=== PATIENT | female | born 1940 | race Caucasian/White ===

== ENCOUNTER 2018-07-27 12:51 | Inpatient (IN) | payer MEDICARE, OTHER ==
[2018-07-27] MEDS ORDERED: SODIUM CHLORIDE 0.9% 1,000 ML IV STA (12:57)
[2018-07-27] MEDS ORDERED: DIPH,PERTUS(ACELL)TETVAC-LF 0.5 ML VIAL IM ONE (12:57)
[2018-07-27] MEDS ORDERED: MORPHINE SULFATE 4 MG/ML SYRINGE IV STA (12:59)
[2018-07-27] MEDS ORDERED: ETOMIDATE 2 MG/ML 10 ML VIAL IVP STA (13:01)
--- NOTE | 2018-07-27 13:14 | ED ---
General Adult HPI - General Chief complaint: Fall Stated complaint: open fracture lt ankle Time Seen by Provider: 07/27/18 12:56 Source: patient, EMS, RN notes reviewed Mode of arrival: EMS Limitations: no limitations - History of Present Illness Initial comments: Patient is a pleasant 78-year-old female presenting to the emergency department after a slip and fall. Patient was trying to hold her horse when she slipped on wet hay. Patient sustained left ankle injury. Bone is visualized. Patient comes in by EMS. Patient states she did strike her head. takes aspirin daily, otherwise no blood thinners. No loss of consciousness. No confusion. No speech from. No weakness. Patient denies any other extremity injury. No chest pain or dyspnea. No neck or back pain. No abdominal pain. No history of previous significant ankle injury. - Related Data Home Medications Medication Instructions Recorded Confirmed Ascorbic Acid [Vitamin C] 1,000 mg PO DAILY 07/27/18 07/27/18 Aspirin [[place] Aspirin EC] 81 mg PO DAILY 07/27/18 07/27/18 Calcium Carbonate [Calcium] 1,200 mg PO DAILY 07/27/18 07/27/18 Cholecalciferol (Vitamin D3) 4,000 unit PO DAILY 07/27/18 07/27/18 [Vitamin D3] Cranberry Fruit Extract [Cranberry] 4,200 mg PO DAILY 07/27/18 07/27/18 Cyanocobalamin (Vitamin B-12) 5,000 mcg PO DAILY 07/27/18 07/27/18 [Vitamin B-12] Dextroamphetamine/Amphetamine 30 mg PO DAILY 07/27/18 07/27/18 [Adderall] Echinacea 400 mg PO DAILY 07/27/18 07/27/18 Folic Acid 0.4 mg PO DAILY 07/27/18 07/27/18 Galantamine HBr [Razadyne ER] 24 mg PO DAILY 07/27/18 07/27/18 Green Tea [place] Extract [Green Tea 150 mg PO DAILY 07/27/18 07/27/18 Extract] Krill Oil 500 mg PO DAILY 07/27/18 07/27/18 Levothyroxine Sodium [Synthroid] 88 mcg PO DAILY 07/27/18 07/27/18 Magnesium Oxide [Mag-Ox] 250 mg PO DAILY 07/27/18 07/27/18 Memantine HCl [Namenda Xr] 28 mg PO DAILY 07/27/18 07/27/18 Multivitamins, Thera [Multivitamin 1 tab PO DAILY 07/27/18 07/27/18 (formulary)] Niacin [Slo-Niacin] 500 mg PO DAILY 07/27/18 07/27/18 [place]-3 Fatty Acids [[place]-3] 1,000 mg PO DAILY 07/27/18 07/27/18 Omeprazole [PriLOSEC] 20 mg PO QAM 07/27/18 07/27/18 Simvastatin [Zocor] 20 mg PO HS 07/27/18 07/27/18 Ubidecarenone [Co Q-10] 400 mg PO DAILY 07/27/18 07/27/18 Venlafaxine HCl ER [Effexor XR] 150 mg PO DAILY 07/27/18 07/27/18 Vitamin E 100 unit PO DAILY 07/27/18 07/27/18 Allergies Allergy/AdvReac Type Severity Reaction Status Date / Time Sulfa (Sulfonamide Allergy Unknown Verified 07/27/18 14:07 Antibiotics) Childhood Review of Systems ROS Statement: Those systems with pertinent positive or pertinent negative responses have been documented in the HPI. ROS Other: All systems not noted in ROS Statement are negative. Constitutional: Denies: fever Eyes: Denies: eye pain ENT: Denies: ear pain Respiratory: Denies: cough Cardiovascular: Denies: chest pain Endocrine: Denies: fatigue Gastrointestinal: Denies: abdominal pain Genitourinary: Denies: dysuria Musculoskeletal: Reports: as per HPI, arthralgia Skin: Denies: rash Neurological: Reports: as per HPI. Denies: weakness, confusion Past Medical History Past Medical History: Hyperlipidemia Additional Past Medical History / Comment(s): alzheimer's disease, narcolepsy, GERD, malignant melanoma, breast tumor History of Any Multi-Drug Resistant Organisms: None Reported Past Surgical History: Hernia Repair Additional Past Surgical History / Comment(s): D&C cyst removal, malignant b reast tumor Past Psychological History: Depression Smoking Status: Current every day smoker Past Alcohol Use History: None Reported Past Drug Use History: None Reported General Exam Limitations: no limitations General appearance: alert Head exam: Present: other (Left parietal scalp laceration) Eye exam: Present: normal appearance, PERRL, EOMI. Absent: nystagmus ENT exam: Present: normal oropharynx Neck exam: Present: normal inspection, other (C-collar is present). Absent: tenderness Respiratory exam: Present: normal lung sounds bilaterally. Absent: chest wall tenderness Cardiovascular Exam: Present: regular rate, normal rhythm Expanded Peripheral pulses: 2+: Dorsalis Pedis (L) GI/Abdominal exam: Present: soft. Absent: tenderness Left Ankle exam: Present: laceration, deformity (open Left ankle fracture dislocation with large portion of tibia exposed. Cap refill less than 2 seconds. Patient is able to move toes without weakness. Dorsalis pedis pulse intact) Back exam: Present: normal inspection Neurological exam: Present: alert, oriented X3, CN II-XII intact. Absent: motor sensory deficit Psychiatric exam: Present: normal affect, normal mood Skin exam: Present: other (open Left ankle fracture) Course Vital Signs 07/27/18 07/27/18 07/27/18 12:57 13:30 13:31 Temperature 98.8 F Pulse Rate 79 71 84 Respiratory 18 18 18 Rate Blood Pressure 160/99 141/86 123/87 O2 Sat by Pulse 95 98 98 Oximetry 07/27/18 07/27/18 07/27/18 13:35 13:40 13:45 Temperature Pulse Rate 64 70 65 Respiratory 0 L 14 18 Rate Blood Pressure 189/99 158/87 166/86 O2 Sat by Pulse 95 95 95 Oximetry 07/27/18 13:50 Temperature Pulse Rate 65 Respiratory 18 Rate Blood Pressure 148/67 O2 Sat by Pulse 96 Oximetry - Reevaluation(s) Reevaluation #1: 07/27/18 13:10 Case was discussed with orthopedics, Dr. Whitney who does recommend reduction and will come and for probable or today. 07/27/18 14:29 Ankle was irrigated with 2 L of normal saline and Betadine prior to reduction. There was no gross contamination. EKG Findings - EKG Comments: EKG Findings:: Normal sinus rhythm 73. KS 160. QRS 110. QT 396. QTc 436. Left axis. Incomplete right bundle-branch block. Left anterior fascicular block. Nonspecific T waves. Procedures - Laceration Laceration #1 Consent Obtained: verbal consent Indication: laceration Site: scalp Size (cm): 3 Description: linear Depth: simple, single layer Pre-repair: wound explored, irrigated extensively Type of Sutures: other ([place]) Number of Sutures: 6 Patient Tolerated Procedure: well, no complications - Orthopedic Fracture Reduction Fracture #1 Consent Obtained: verbal consent, written consent, emergent situation Side: left Fracture Reduction Location: tibia, fibula Analgesia: procedural sedation Technique: direct manipulation, traction/counter-traction Post Reduction X-rays Demonstrate: acceptable reduction Post-Reduction Neuro Exam: intact Post-Reduction Vascular Exam: intact Splint Applied: Yes Patient Tolerated Procedure: well, no complications - Orthopedic Splinting/Casting Injury #1 Side: left Lower Extremity Injury Location: short leg, ankle Lower Extremity Immobilizer: stirrup splint - Procedural Sedation Procedural Sedation Start Time: 13:30 Procedural Sedation Stop Time: 13:55 Indications: fracture/dislocation reduction Preparation: manager maintenance applied, pulse oximeter, capnometry used, suppl emental O2 applied IV Etomidate Dose (mgs): 12 Complications: hypoventilation Interventions: assist by BVM Patient Tolerated Procedure: well Medical Decision Making - Lab Data Result diagrams: 07/27/18 12:54 07/27/18 13:30 Lab Results 07/27/18 07/27/18 07/27/18 Range/Units 12:54 12:54 12:54 WBC 5.9 (3.8-10.6) k/uL RBC 4.84 (3.80-5.40) m/uL Hgb 14.8 (11.4-16.0) gm/dL Hct 45.0 (34.0-46.0) % MCV 92.9 (80.0-100.0) fL MCH 30.5 (25.0-35.0) pg MCHC 32.8 (31.0-37.0) g/dL RDW 14.3 (11.5-15.5) % Plt Count 189 (150-450) k/uL Neutrophils % 55 % Lymphocytes % 35 % Monocytes % 5 % Eosinophils % 3 % Basophils % 1 % Neutrophils # 3.2 (1.3-7.7) k/uL Lymphocytes # 2.0 (1.0-4.8) k/uL Monocytes # 0.3 (0-1.0) k/uL Eosinophils # 0.2 (0-0.7) k/uL Basophils # 0.0 (0-0.2) k/uL PT 10.0 (9.0-12.0) sec INR 0.9 (<1.2) APTT 22.6 (22.0-30.0) sec Sodium (137-145) mmol/L Potassium (3.5-5.1) mmol/L Chloride (98-107) mmol/L Carbon Dioxide (22-30) mmol/L Anion Gap mmol/L BUN (7-17) mg/dL Creatinine (0.52-1.04) mg/dL Est GFR (CKD-EPI)AfAm (>60 ml/min/1.73 sqM) Est GFR (CKD-EPI)NonAf (>60 ml/min/1.73 sqM) Glucose (74-99) mg/dL Calcium (8.4-10.2) mg/dL Total Bilirubin (0.2-1.3) mg/dL AST (14-36) U/L ALT (9-52) U/L Alkaline Phosphatase (38-126) U/L Total Protein (6.3-8.2) g/dL Albumin (3.5-5.0) g/dL Blood Type Blood Type Confirm A Positive Blood Type Recheck Antibody Screen Spec Expiration Date 07/27/18 07/27/18 Range/Units 13:15 13:30 WBC (3.8-10.6) k/uL RBC (3.80-5.40) m/uL Hgb (11.4-16.0) gm/dL Hct (34.0-46.0) % MCV (80.0-100.0) fL MCH (25.0-35.0) pg MCHC (31.0-37.0) g/dL RDW (11.5-15.5) % Plt Count (150-450) k/uL Neutrophils % % Lymphocytes % % Monocytes % % Eosinophils % % Basophils % % Neutrophils # (1.3-7.7) k/uL Lymphocytes # (1.0-4.8) k/uL Monocytes # (0-1.0) k/uL Eosinophils # (0-0.7) k/uL Basophils # (0-0.2) k/uL PT (9.0-12.0) sec INR (<1.2) APTT (22.0-30.0) sec Sodium 142 (137-145) mmol/L Potassium 3.9 (3.5-5.1) mmol/L Chloride 107 (98-107) mmol/L Carbon Dioxide 29 (22-30) mmol/L Anion Gap 6 mmol/L BUN 15 (7-17) mg/dL Creatinine 0.70 (0.52-1.04) mg/dL Est GFR (CKD-EPI)AfAm >90 (>60 ml/min/1.73 sqM) Est GFR (CKD-EPI)NonAf 84 (>60 ml/min/1.73 sqM) Glucose 126 H (74-99) mg/dL Calcium 8.8 (8.4-10.2) mg/dL Total Bilirubin 0.4 (0.2-1.3) mg/dL AST 22 (14-36) U/L ALT 16 (9-52) U/L Alkaline Phosphatase 62 (38-126) U/L Total Protein 6.3 (6.3-8.2) g/dL Albumin 3.8 (3.5-5.0) g/dL Blood Type A Positive Blood Type Confirm Blood Type Recheck CABO Indicated Antibody Screen NEGATIVE Spec Expiration Date 07/30/2018 - 6578 - Radiology Data Radiology results: report reviewed (Computed tomography scan of the brain and cervical spine reveal no acute abnormality.), image reviewed (1 view chest x-ray shows no acute process pelvic x-ray shows no acute process. Left ankle x-ray s hows comminuted tibia fibular fracture with complete dislocation of the talus lateral and anterior to the tibia. Postreduction x-ray shows significantly improved reduction of trimalleolar fracture.) Critical Care Time Critical Care Time: Yes Total Critical Care Time: 37 Disposition Clinical Impression: Fall, Fracture dislocation of left ankle joint, Open left ankle fracture, Laceration of scalp Disposition: ADMITTED IP TO THIS HOSP Is patient prescribed a controlled substance at d/c from ED?: No Referrals: Vel Montes De Oca MD [Primary Care Provider] - 1-2 days Decision Time: 14:32
[2018-07-27] MEDS ORDERED: ceFAZolin IN SWFI 2 GM/20 ML SYRINGE IVP ONE (13:15)
[2018-07-27 13:18] LABS: Basophils % (A) 1 %; Eosinophils # (A) 0.2 k/uL (0-0.7); Eosinophils % (A) 3 %; HGB 14.8 gm/dL (11.4-16.0); Lymphocytes % (A) 35 %; MCH 30.5 pg (25.0-35.0); MCHC 32.8 g/dL (31.0-37.0); MCV 92.9 fL (80.0-100.0); Mean Platelet Volume 7.5; Monocytes # (A) 0.3 k/uL (0-1.0); Monocytes % (A) 5 %; Neutrophils # (A) 3.2 k/uL (1.3-7.7); Neutrophils % (A) 55 %; Platelet Count 189 k/uL (150-450); RBC 4.84 m/uL (3.80-5.40); RDW 14.3 % (11.5-15.5); WBC 5.9 k/uL (3.8-10.6)
[2018-07-27] MEDS ORDERED: MORPHINE SULFATE 4 MG/ML SYRINGE IVP STA (13:25)
[2018-07-27 13:45] LABS: INR 0.9 (<1.2); Partial Thromboplastin Time 22.6 sec (22.0-30.0)
[2018-07-27 13:47] LABS: Potassium 3.9 mmol/L (3.5-5.1); Sodium 142 mmol/L (137-145)
[2018-07-27 13:48] LABS: ALT 16 U/L (9-52); AST 22 U/L (14-36); Albumin 3.8 g/dL (3.5-5.0); Alkaline Phosphatase 62 U/L (38-126); Anion Gap 6 mmol/L; Blood Urea Nitrogen 15 mg/dL (7-17); Calcium 8.8 mg/dL (8.4-10.2); Carbon Dioxide 29 mmol/L (22-30); Chloride 107 mmol/L (98-107); Glucose 126 mg/dL (74-99); Total Bilirubin 0.4 mg/dL (0.2-1.3); Total Protein 6.3 g/dL (6.3-8.2)
[2018-07-27] MEDS ORDERED: ONDANSETRON 4 MG/2 ML VIAL IVP STA (13:51)
--- NOTE | 2018-07-27 14:14 | XR ---
EXAMINATION TYPE: XR pelvis AP view DATE OF EXAM: 07/27/2018 COMPARISON: None HISTORY: Trauma fall TECHNIQUE: AP pelvis FINDINGS: Femoral heads articulate with the acetabulum. Symphysis pubis and sacroiliac joints are nor mal. No acute fractures are evident. Normal bowel gas is present. IMPRESSION: 1. Normal pelvis
--- NOTE | 2018-07-27 14:14 | XR ---
EXAMINATION TYPE: XR chest 1V portable DATE OF EXAM: 07/27/2018 COMPARISON: None INDICATION: Trauma fall TECHNIQUE: Single frontal view of the chest is obtained. FINDINGS: The heart size is normal. The pulmonary vasculature is normal. The lungs are clear. No pneumothorax is evident. No displaced rib fractures are identified. IMPRESSION: 1. No acute pulmonary process.
--- NOTE | 2018-07-27 14:17 | XR ---
EXAMINATION TYPE: XR ankle limited LT DATE OF EXAM: 07/27/2018 COMPARISON: None HISTORY: Fall, pain open left ankle fracture TECHNIQUE: 2 view left ankle FINDINGS: There is dislocation of the talus in relation to the tibia anterior and lateral. There is a comminuted fibular fracture. Medial tibial fracture appears to be present as well. Posterior tibial fracture is not clearly identified. Plantar calcaneal heel spur is noted. There is some flattening of Boehler's angle. Consider a calcaneal fracture as well. This could be pro jectional given some rotation of the foot during the exam. Subsequent studies appear more normal. IMPRESSION: 1. Comminuted fibular fracture with complete dislocation of the talus lateral and anterior to the ti tiffany.
--- NOTE | 2018-07-27 14:18 | XR ---
EXAMINATION TYPE: XR ankle limited LT DATE OF EXAM: 07/27/2018 COMPARISON: Earlier exam HISTORY: Open fracture distal left ankle TECHNIQUE: 2 view left ankle through a fiberglass cast FINDINGS: Comminuted fracture the distal fibula is evident. A transverse fracture of the distal media l malleolus is evident. The talus has normal orientation in relation to the tibia. Posterior tibial f racture however is identified on this examination. Findings are compatible with reduction of previous dislocation of the talus and a trimalleolar fracture of the ankle. Bohler's angle appears normal on this examination. Plantar calcaneal heel spur is present. No additio nal fractures are evident. IMPRESSION: 1. Trimalleolar fracture. 2. Reduction of talar dislocation.
--- NOTE | 2018-07-27 14:32 | CT ---
EXAMINATION TYPE: CT brain nik ramos DATE OF EXAM: 07/27/2018 COMPARISON: None HISTORY: Fall today CT DLP: 1329.2 mGycm, Automated exposure control for dose reduction was used. CONTRAST: Patient injected with 0 mL of Isovue 300. CT of the brain is performed utilizing 3 mm thick sections through the posterior fossa and 3 mm thick sections through the remaining calvarium. Study is performed within 24 hours of arrival to the hospital. No abnormal hyperdensity is present to suggest an acute intracranial hemorrhage. No mass lesion is evident. No acute infarcts are evident. Minimal periventricular white matter changes may be present. Ventricles and sulci are appropriate for the patient age. Paranasal sinuses and mastoid air cells within the [id number] are clear. IMPRESSIONS: 1. No acute intracranial process. CT cervical spine. COMPARISON: None CT of the cervical spine is performed in the axial plane at 2 mm thick sections. Reconstructed image s in the coronal, and sagittal plane are reviewed on the computer. No acute fractures are evident. There is slight kyphosis C3-4. There is loss of disc height throughout the cervical spine. This is most notable C3-4. Vertebral body heights are preserved. No spinal canal stenosis is evident. Uncovertebral joint hypertrophy is present. At the C4-5 and C5-6 levels this is contributing to moder ate foraminal stenosis. Milder foraminal narrowing at C6-7 is present from uncovertebral joint hypert rophy. IMPRESSIONS: 1. Degenerative disc change and uncovertebral joint hypertrophy discussed above. 2. No acute posttraumatic changes.
[2018-07-27] MEDS ORDERED: NALOXONE 0.4 MG/ML 1 ML VIAL IV PRN (14:33)
[2018-07-27] MEDS ORDERED: HYDROmorphone 0.5 MG/0.5 ML SYRINGE IVP PRN (14:33)
[2018-07-27] MEDS ORDERED: DEXTROSE 5% IVPB SCH ×2 (16:00)
[2018-07-27] MEDS ORDERED: WATER IVPB SCH ×2 (16:00)
[2018-07-27] MEDS ORDERED: PENICILLIN POTASSIUM IVPB SCH ×2 (16:00)
--- NOTE | 2018-07-27 16:09 | P.HPOR ---
History of Present Illness H&P Date: 07/27/18 Chief Complaint: left ankle fracture Mrs. Dooley is a very pleasant 78-year-old female who sustained an injury to her left ankle earlier today. She was in her barn and her horse turned and knocked her over, causing her to fall and resulting in an open ankle fracture. She is brought to [facility] emergency department where the ankle was reduced and splinted. She localizes the pain to the left ankle and denies any other significant injuries or areas of pain associated with this fall. She denies previous history of injury to the ankle and normally ambulates without the use of assistive devices. She denies past medical history of diabetes, cardiovascular or kidney disease. She is a current half pack per day smoker for nearly 60 years. Past Medical History Past Medical History: Hyperlipidemia Additional Past Medical History / Comment(s): alzheimer's disease, narcolepsy, GERD, malignant melanoma, breast tumor History of Any Multi-Drug Resistant Organisms: None Reported Past Surgical History: Hernia Repair Additional Past Surgical History / Comment(s): D&C cyst removal, malignant breast tumor Past Psychological History: Depression Smoking Status: Current every day smoker Past Alcohol Use History: None Reported Past Drug Use History: None Reported Medications and Allergies Home Medications Medication Instructions Recorded Confirmed Type Ascorbic Acid [Vitamin C] 1,000 mg PO DAILY 07/27/18 07/27/18 History Aspirin [[place] Aspirin EC] 81 mg PO DAILY 07/27/18 07/27/18 History Calcium Carbonate [Calcium] 1,200 mg PO DAILY 07/27/18 07/27/18 History Cholecalciferol (Vitamin D3) 4,000 unit PO DAILY 07/27/18 07/27/18 History [Vitamin D3] Cranberry Fruit Extract [Cranberry] 4,200 mg PO DAILY 07/27/18 07/27/18 History Cyanocobalamin (Vitamin B-12) 5,000 mcg PO DAILY 07/27/18 07/27/18 History [Vitamin B-12] Dextroamphetamine/Amphetamine 30 mg PO DAILY 07/27/18 07/27/18 History [Adderall] Echinacea 400 mg PO DAILY 07/27/18 07/27/18 History Folic Acid 0.4 mg PO DAILY 07/27/18 07/27/18 History Galantamine HBr [Razadyne ER] 24 mg PO DAILY 07/27/18 07/27/18 History Green Tea [place] Extract [Green Tea 150 mg PO DAILY 07/27/18 07/27/18 History Extract] Krill Oil 500 mg PO DAILY 07/27/18 07/27/18 History Levothyroxine Sodium [Synthroid] 88 mcg PO DAILY 07/27/18 07/27/18 History Magnesium Oxide [Mag-Ox] 250 mg PO DAILY 07/27/18 07/27/18 History Memantine HCl [Namenda Xr] 28 mg PO DAILY 07/27/18 07/27/18 History Multivitamins, Thera [Multivitamin 1 tab PO DAILY 07/27/18 07/27/18 History (formulary)] Niacin [Slo-Niacin] 500 mg PO DAILY 07/27/18 07/27/18 History [place]-3 Fatty Acids [[place]-3] 1,000 mg PO DAILY 07/27/18 07/27/18 History Omeprazole [PriLOSEC] 20 mg PO QAM 07/27/18 07/27/18 History Simvastatin [Zocor] 20 mg PO HS 07/27/18 07/27/18 History Ubidecarenone [Co Q-10] 400 mg PO DAILY 07/27/18 07/27/18 History Venlafaxine HCl ER [Effexor XR] 150 mg PO DAILY 07/27/18 07/27/18 History Vitamin E 100 unit PO DAILY 07/27/18 07/27/18 History Allergies Allergy/AdvReac Type Severity Reaction Status Date / Time Sulfa (Sulfonamide Allergy Unknown Verified 07/27/18 14:07 Antibiotics) Childhood Physical Examination HEENT: Normocephalic Cardiovascular: Regular rate and rhythm. Pulmonary: No audible wheeze or conversational dyspnea Abdomen: Soft & nontender Musculoskeletal - Left lower extremity: There is no gross visible deformity or malalignment. Splint is in place at the left ankle. This was windowed to reveal an open wound on the medial aspect of the ankle measuring approximately 8 cm. There is no active bleeding or gross visible contamination. Light touch sensation is subjectively intact distally and she can actively wiggle her toes. Dorsalis pedis pulse is 2+ but the foot is mildly cool and white. Note: the RAYMUNDO was quite tight and circulation improved upon loosening. Secondary survey reveals no gross long bone abnormalities, deformities or tenderness to palpation in the right lower extremity or bilateral upper extremities. Results X-rays-left ankle: Demonstrated completely displaced ankle fracture-dislocation. The talus is displaced laterally 100%. Postreduction x-rays demonstrated comminuted, trimalleolar ankle fracture with a segmental Day C distal fibula fracture, a comminuted medial malleolus fracture which is minimally displaced and a large posterior malleolus fragment. The talus is again seated within the mortise but there is mild rotation posterior subluxation. No other fractures are appreciated. - Labs Labs: Abnormal Lab Results - Last 24 Hours (Table) 07/27/18 Range/Units 13:30 Glucose 126 H (74-99) mg/dL H & H 07/27/18 Range/Units 12:54 Hgb 14.8 (11.4-16.0) gm/dL Hct 45.0 (34.0-46.0) % Coagulation 07/27/18 Range/Units 12:54 INR 0.9 (<1.2) Result Diagrams: 07/27/18 12:54 07/27/18 13:30 Assessment and Plan Assessment: 1. Grade 2 open comminuted left trimalleolar ankle fracture-dislocation 2. Nicotine addiction/tobacco abuse Plan: I discussed the diagnosis and radiographic findings with the patient and her . We discussed treatment options. With this open, unstable fracture, I recommended operative debridement and initial stabilization with splinting versus application of an external fixator. We discussed the initial surgical plan. Risks and benefits were reviewed including (but not limited to) the risks of infection, bleeding, blood clots and possible need for additional surgery. Questions were invited and answered. The patient expressed understanding and wishes to proceed with surgery. The patient has been administered IV antibiotics. She will be kept NPO and we will proceed with urgent irrigation and debridement of the open left ankle fracture dislocation. Eddi Plummer D.O. Orthopedic surgeon [facility]
[2018-07-27] MEDS: SODIUM CHLORIDE 0.9% 1,000 ML IV SCH ×2 (16:10→22:58)
[2018-07-27] MEDS ORDERED: PROPOFOL 10 MG/ML 20 ML VIAL IV ONE ×2 (16:39)
[2018-07-27] MEDS ORDERED: LIDOCAINE 1% INJ 10MG/ML (20 ML MDV) ONE (16:39)
[2018-07-27] MEDS ORDERED: fentaNYL (PF) 50 MCG/ML 2 ML AMP ONE (16:39)
[2018-07-27] MEDS ORDERED: ePHEDrine SULFATE/0.9% NACL/PF 50 MG/5 ML SYRINGE IV ONE (16:39)
[2018-07-27] MEDS ORDERED: NEOSTIGMINE 1 MG/ML 10 ML VIAL ONE (16:39)
[2018-07-27] MEDS ORDERED: SUCCINYLCHOLINE CHLORIDE 100 MG/5 ML SYR IV ONE (16:39)
[2018-07-27] MEDS ORDERED: ROCURONIUM BROMIDE 10 MG/ML 10 ML VIAL IV ONE (16:39)
[2018-07-27] MEDS ORDERED: GLYCOPYRROLATE 0.2 MG/ML 2 ML VIAL ONE (16:39)
[2018-07-27] MEDS ORDERED: MIDAZOLAM 2 MG/2 ML VIAL ONE ×2 (16:39)
[2018-07-27] MEDS ORDERED: LACTATED RINGERS 1,000 ML IV ONE ×2 (16:44→19:50)
[2018-07-27] MEDS: HYDROmorphone 1 MG/ML 1 ML SYRINGE IVP ONE ×2 (19:35→19:40)
--- NOTE | 2018-07-27 19:55 | FL ---
Fluoroscopy INDICATION: Pain FINDINGS: Fluoroscopy time: 1 minute 38 seconds. Images obtained: 4. IMPRESSIONS: 1. Documentation of fluoroscopy.
[2018-07-27] MEDS ORDERED: ONDANSETRON 4 MG/2 ML VIAL IVP ONE (20:09)
[2018-07-27] MEDS: HYDROmorphone 1 MG/ML 1 ML SYRINGE IVP PRN (21:40)
[2018-07-27] MEDS: WATER IVPB SCH ×2 (22:55)
[2018-07-27] MEDS: DEXTROSE 5% IVPB SCH ×2 (22:55)
[2018-07-27] MEDS: PENICILLIN POTASSIUM IVPB SCH ×2 (22:55)
[2018-07-28] LABS: Basophils % (A) 0 %; Eosinophils # (A) 0.2 k/uL (0-0.7); Eosinophils % (A) 2 %; HCT 39.5 % (34.0-46.0); HGB 12.8 gm/dL (11.4-16.0); Lymphocytes # (A) 1.9 k/uL (1.0-4.8); Lymphocytes % (A) 19 %; MCHC 32.4 g/dL (31.0-37.0); MCV 95.6 fL (80.0-100.0); Mean Platelet Volume 7.4; Monocytes # (A) 0.4 k/uL (0-1.0); Monocytes % (A) 4 %; Neutrophils # (A) 7.5 k/uL (1.3-7.7); Neutrophils % (A) 75 %; Platelet Count 145 k/uL (150-450); RBC 4.13 m/uL (3.80-5.40); RDW 13.7 % (11.5-15.5)
[2018-07-28] MEDS: HYDROmorphone 1 MG/ML 1 ML SYRINGE IVP PRN ×4 (00:24→16:51)
[2018-07-28] MEDS: ONDANSETRON 4 MG/2 ML VIAL IVP PRN (00:27)
[2018-07-28] MEDS: ceFAZolin IN SWFI 2 GM/20 ML SYRINGE IVP SCH ×4 (00:32→23:55)
[2018-07-28] MEDS: WATER IVPB SCH ×12 (00:32→20:46)
[2018-07-28] MEDS: DEXTROSE 5% IVPB SCH ×12 (00:32→20:46)
[2018-07-28] MEDS: PENICILLIN POTASSIUM IVPB SCH ×12 (00:32→20:46)
[2018-07-28] MEDS: LEVOTHYROXINE 88 MCG TAB PO SCH (04:20)
[2018-07-28] MEDS: SODIUM CHLORIDE 0.9% 1,000 ML IV SCH ×3 (05:56→20:49)
[2018-07-28] MEDS: HYDROcodone/APAP 5-325MG 1 EACH TAB PO PRN ×3 (07:12→20:54)
[2018-07-28] MEDS ORDERED: NON-FORMULARY DRUG (Magnesium Oxide 250 MG) PO SCH (09:00)
[2018-07-28] MEDS ORDERED: NIACIN 500 MG PO SCH (09:00)
[2018-07-28] MEDS ORDERED: NON-FORMULARY DRUG (Folic Acid [Folic Acid] 0.4 MG) PO SCH (09:00)
[2018-07-28] MEDS ORDERED: NON-FORMULARY DRUG (Omeprazole 20 MG) PO SCH (09:00)
[2018-07-28] MEDS ORDERED: NON-FORMULARY DRUG (Vitamin E [Vitamin E] 100 UNIT) PO SCH (09:00)
[2018-07-28] MEDS ORDERED: NON-FORMULARY DRUG (Calcium Carbonate [Calcium] 1,200 MG) PO SCH (09:00)
[2018-07-28] MEDS: MEMANTINE 10 MG TAB PO SCH ×2 (09:01→20:46)
[2018-07-28] MEDS: DONEPEZIL 10 MG TAB PO SCH (09:01)
[2018-07-28] MEDS: ENOXAPARIN 40 MG/0.4 ML SYRINGE SQ SCH (09:01)
[2018-07-28] MEDS: CHOLECALCIFEROL 1,000 UNIT TAB PO SCH (09:02)
[2018-07-28] MEDS: CYANOCOBALAMIN 500 MCG TAB PO SCH (09:02)
[2018-07-28] MEDS: Dextroamphetamine/Amphetamine [Adderall] 30 MG PO SCH (09:06)
[2018-07-28] MEDS: MULTIVITAMINS, THERA 1 EACH TAB PO SCH (10:41)
[2018-07-28] MEDS: VENLAFAXINE HCL ER 150 MG CAP PO SCH (10:41)
[2018-07-28] MEDS: PANTOPRAZOLE 40 MG/10 ML VIAL IV SCH (10:43)
--- NOTE | 2018-07-28 11:16 | P.PN ---
Subjective Progress Note Date: 07/28/18 The patient states the pain is well-controlled. This is localized to the distal left lower extremity. She denies new areas of pain or identified injuries. No fevers, chills, nausea or vomiting. She denies any new issues or concerns. Objective - Vital Signs Vital signs: Vital Signs Temp 99.1 F 07/28/18 06:58 Pulse 70 07/28/18 06:58 Resp 16 07/28/18 06:58 BP 110/69 07/28/18 06:58 Pulse Ox 94 L 07/28/18 10:46 Intake & Output 07/27/18 07/28/18 07/28/18 18:59 06:59 18:59 Intake Total 600 1750 Output Total 50 Balance 600 1700 Weight 77.111 kg Intake: IV 600 400 Intake, IV Titration 1350 Amount Penicillin G Potassium 4, 100 000,000 unit In Dextrose 5% in Water 100 ml @ 100 mls/hr IVPB Q4HR CODY Rx#: [id number] Sodium Chloride 0.9% 1, 1250 000 ml @ 125 mls/hr IV . Q8H CODY Rx#:[id number] Output: Estimated Blood Loss 50 Other: Voiding Method Bedpan # Voids 1 - Exam Left lower extremity: The splint is clean, dry and in place. The foot is warm and well-perfused. Intact gross motor function and light touch sensation distally. Secondary survey reveals no tenderness to palpation on the right lower extremity or bilateral upper extremities. No tenderness to palpation along the cervical spine. No pain or radiculopathy with active cervical motion. Light touch sensation is subjectively intact throughout the bilateral upper extremities. Intact gross motor function bilaterally across C5 to T1. Pelvis is stable to AP and lateral compression. - Labs CBC & Chem 7: 07/27/18 23:40 07/27/18 13:30 Labs: Abnormal Lab Results - Last 24 Hours (Table) 07/27/18 07/27/18 Range/Units 13:30 23:40 Plt Count 145 L (150-450) k/uL Glucose 126 H (74-99) mg/dL Assessment and Plan Assessment: 1. Postoperative day #1 status post I&D and application of external fixator for open left trimalleolar ankle fracture-dislocation 2. Nicotine addiction/tobacco abuse Plan: Mrs. Dooley is doing well. Continue ice and elevation of the left ankle. PRN pain management. DVT prophylaxis with low molecular weight heparin. Nonweightbearing - left lower extremity. Up with assist only. Timing for definitive surgical stabilization will be determined based on the status of the surrounding soft tissues. We will continue prophylactic IV antibiotics for another 24 hours.
--- NOTE | 2018-07-28 11:25 | CT ---
EXAMINATION TYPE: CT ankle LT wo con DATE OF EXAM: 07/28/2018 COMPARISON: Plain films 07/27/2018 HISTORY: Open fracture of left ankle CT DLP: 287.8 mGycm Automated exposure control for dose reduction was used. TECHNIQUE: CT of the left ankle is performed on a spiral scan. Reconstructed images in the coronal an d sagittal plane are reviewed on the computer. FINDINGS: Hardware is present in the mid shaft of the tibia. Fixation rods are present through the anterior low er extremity with a additional fixation randall through the calcaneus. Comminuted lateral malleolar and distal fibular fracture is evident. Posterior tibial fracture with d isplacement of the fracture fragments is evident. There is small amounts of hypodensity scattered wit hin the ankle joint space may be postsurgical in nature. Correlate with the surgical history. Given t he nature of an open fracture at this location of this could be from the fracture. Note is made of 2 punctate areas of increased density in the medial aspect of the soft tissues posterior to the medial malleolus. Series 201 image is 95 and 98. Soft tissue swelling is over the ankle subcutaneous tissues. The medial malleolar fracture has slight diastases in the coronal plane talus and tibial junction yaritza ears more anatomic. There is slight lateral displacement of the distal medial malleolar fracture eval uation of the more proximal tibia. This is estimated 0.3 cm at the posterior aspect of the ankle mort ise. In the sagittal plane there appears to be some mild posterior subluxation of the talus in relation to the tibia. IMPRESSION: 1. TRIMALLEOLAR FRACTURE. DISTAL FIBULA IS COMMINUTED. 2. MINIMAL LATERAL SUBLUXATION OF THE LIVER MAXIMUM OF 0.3 CM MAY BE PRESENT IN THE CORONAL PLANE. TH ERE APPEARS TO BE SOME POSTERIOR SUBLUXATION OF THE TALUS IN RELATION TO THE DISTAL TIBIA IN THE SAGI TTAL PLANE. 3. MILD DIASTASES OF THE POSTERIOR TIBIAL FRACTURE AND THE MEDIAL MALLEOLAR FRACTURE. 4. THERE MAY BE COUPLE OF PUNCTATE FOREIGN BODIES PRESENT POSTERIOR TO THE MEDIAL MALLEOLUS.
--- NOTE | 2018-07-28 12:50 | P.OP ---
Date of Procedure: 07/27/18 Preoperative Diagnosis: Grade 2 open trimalleolar left ankle fracture-dislocation Postoperative Diagnosis: Grade 2 open trimalleolar left ankle fracture-dislocation Procedure(s) Performed: 1. Irrigation and debridement and wound closure of grade 2 open trimalleolar left ankle fracture-dislocation 2. Application of external fixator Implants: Synthes large external fixator with two 4.5 mm Schanz pins and one 5 mm centrally-threaded Steinmann pin; Delta frame Anesthesia: GETA Surgeon: Eddi Plummer Estimated Blood Loss (ml): 50 Pathology: none sent Condition: stable Disposition: PACU Indications for Procedure: The patient is a pleasant 78-year-old female who sustained an open fracture- dislocation of her left ankle. Surgical debridement and stabilization was recommended. Risks and benefits were reviewed, including (but not limited to) the risks of infection, bleeding, injury to tendons or neurovascular structures, wound healing complications and possible need for future surgery. The patient and her expressed understanding, acceptance of these risks and wished to proceed with surgery. Consent forms were signed. The surgical site was confirmed and marked preoperatively. Description of Procedure: The patient was positioned supine. All bony prominences were well padded. Anesthesia was administered uneventfully. Prophylactic IV antibiotics had previously been administered. A tourniquet was placed on the left thigh but was not inflated. The left lower extremity was then prepped and draped in standard, sterile fashion. A timeout was performed which confirmed the patient, the operative side, the site and the procedure to be performed: all team members expressed agreement. There was a traumatic, L-shaped wound over the medial side of the ankle measuring approximately 5 cm x 7 cm. This was sharply extended proximally. The wound was explored. There was no visible contamination or foreign debris. The saphenous vein was identified on the anterior aspect of the wound and appeared uninjured. There was a transverse fracture the medial malleolus with disruption of the deltoid ligament. The flexor retinaculum was also disrupted and the tarsal tunnel was exposed but the underlying structures appeared undamaged. The joint was opened and explored. No loose bodies or foreign matter was identified. The ankle and fracture sites were copiously irrigated with 9 L of normal saline using cystoscopy tubing and gravity inflow. The bone and surrounding soft tissues were mechanically debrided with a curette. Once adequate debridement was achieved, the wound was covered and attention was turned to stabilizing the fracture. The fracture was examined with live intraoperative fluoroscopy. The ankle was grossly unstable and the decision was made to proceed with application of an external fixator. Small incisions were made on the anteromedial aspect of the distal tibia. The starting point was localized with imaging. A 5 mm Schanz pin was drilled and inserted. Its position was found to be eccentric in the tibia on imaging. This was removed and two 4.5 mm Schanz pins were drilled and inserted proximally and distally, utilizing fluoroscopic guidance. The starting point for the calcaneal pin was identified on imaging. A small medial incision was made. Blunt, spreading dissection proceeded down to the bone. A 5 mm centrally-threaded Steinmann pin was drilled across the calcaneus and out the lateral skin through a small stab incision. A large pin clamp was applied to the proximal Schanz pins. Four pin-to-bar clamps were attached followed by two carbon fiber rods. Axial traction was applied and the clamps were tightened. Final images were obtained which confirmed reduction of the ankle with the talus well-seated within the mortise. The traumatic wound was irrigated again with normal saline. The flexor retinaculum and deltoid ligament were loosely reapproximated with interrupted 3- 0 PDS sutures. The wound was loosely closed with interrupted 3-0 Prolene sutur es. Good hemostasis was maintained throughout the case without the need for the tourniquet. A sterile dressing was applied followed by a short leg sugartong plaster splint. All sponge, needle and instrument counts were correct at the end of the case. The patient tolerated the procedure well and was taken to the recovery room in stable condition.
[2018-07-28] MEDS: ATORVASTATIN 10 MG TAB PO SCH (20:46)
[2018-07-29] MEDS: HYDROmorphone 1 MG/ML 1 ML SYRINGE IVP PRN ×3 (00:21→07:33)
[2018-07-29] MEDS: PENICILLIN POTASSIUM IVPB SCH ×12 (00:29→21:41)
[2018-07-29] MEDS: DEXTROSE 5% IVPB SCH ×12 (00:29→21:41)
[2018-07-29] MEDS: WATER IVPB SCH ×12 (00:29→21:41)
[2018-07-29] MEDS: SODIUM CHLORIDE 0.9% 1,000 ML IV SCH ×3 (03:41→22:42)
[2018-07-29] MEDS: LEVOTHYROXINE 88 MCG TAB PO SCH (05:11)
[2018-07-29] MEDS: ONDANSETRON 4 MG/2 ML VIAL IVP PRN (07:34)
[2018-07-29] MEDS: CYANOCOBALAMIN 500 MCG TAB PO SCH (09:00)
[2018-07-29] MEDS: CHOLECALCIFEROL 1,000 UNIT TAB PO SCH (09:00)
[2018-07-29] MEDS: MULTIVITAMINS, THERA 1 EACH TAB PO SCH (09:01)
[2018-07-29] MEDS: ENOXAPARIN 40 MG/0.4 ML SYRINGE SQ SCH (09:01)
[2018-07-29] MEDS: DONEPEZIL 10 MG TAB PO SCH (09:01)
[2018-07-29] MEDS: VENLAFAXINE HCL ER 150 MG CAP PO SCH (09:01)
[2018-07-29] MEDS: MEMANTINE 10 MG TAB PO SCH ×2 (09:01→21:08)
[2018-07-29] MEDS: PANTOPRAZOLE 40 MG/10 ML VIAL IV SCH (09:02)
[2018-07-29] MEDS: Dextroamphetamine/Amphetamine [Adderall] 30 MG PO SCH (09:09)
[2018-07-29] MEDS: HYDROcodone/APAP 5-325MG 1 EACH TAB PO PRN ×2 (12:48→19:44)
[2018-07-29 17:25] LABS: Basophils % (A) 0 %; Eosinophils # (A) 0.2 k/uL (0-0.7); Eosinophils % (A) 2 %; HGB 10.2 gm/dL (11.4-16.0); Lymphocytes # (A) 1.1 k/uL (1.0-4.8); Lymphocytes % (A) 17 %; MCH 30.7 pg (25.0-35.0); MCHC 32.8 g/dL (31.0-37.0); MCV 93.5 fL (80.0-100.0); Mean Platelet Volume 7.5; Monocytes # (A) 0.3 k/uL (0-1.0); Monocytes % (A) 4 %; Neutrophils # (A) 5.1 k/uL (1.3-7.7); Neutrophils % (A) 76 %; Platelet Count 122 k/uL (150-450); RBC 3.32 m/uL (3.80-5.40); RDW 13.4 % (11.5-15.5); WBC 6.8 k/uL (3.8-10.6)
--- NOTE | 2018-07-29 20:50 | P.PN ---
Subjective Progress Note Date: 07/29/18 Patient states that the pain is well controlled. No nausea or vomiting. She denies any new issues or concerns. She would prefer to go home rather than a "[place] [facility]." Objective - Vital Signs Vital signs: Vital Signs Temp 98.4 F 07/29/18 20:00 Pulse 82 07/29/18 20:00 Resp 14 07/29/18 20:00 BP 121/62 07/29/18 20:00 Pulse Ox 93 L 07/29/18 20:00 Intake & Output 07/29/18 07/29/18 07/30/18 06:59 18:59 06:59 Intake Total 590 1750 Output Total 600 600 Balance -10 1150 Intake: Intake, IV Titration 1200 Amount Penicillin G Potassium 4, 200 000,000 unit In Dextrose 5% in Water 100 ml @ 100 mls/hr IVPB Q4HR CODY Rx#: [id number] Sodium Chloride 0.9% 1, 1000 000 ml @ 125 mls/hr IV . Q8H CODY Rx#:[id number] Oral 590 550 Output: Urine 600 600 Other: Voiding Method Bedpan Bedpan # Voids 3 3 - Exam Left lower extremity: The splint is clean, dry and in place. Cast padding windowed to reveal mild to moderate edema around the anterior ankle. No wrinkles. No fracture blisters. - Labs CBC & Chem 7: 07/29/18 17:05 07/27/18 13:30 Labs: Abnormal Lab Results - Last 24 Hours (Table) 07/29/18 Range/Units 17:05 RBC 3.32 L (3.80-5.40) m/uL Hgb 10.2 L (11.4-16.0) gm/dL Hct 31.0 L (34.0-46.0) % Plt Count 122 L (150-450) k/uL Assessment and Plan Assessment: 1. Postoperative day #2 status post I&D and application of external fixator for open left trimalleolar ankle fracture-dislocation 2. Nicotine addiction/tobacco abuse Plan: Discussed rationale behind discharge to SNF for safety and ease of care prior to definitive surgical stabilization. She expressed understanding and agreement. Continue ice and elevation of the left ankle. PRN pain management. DVT prophylaxis with low molecular weight heparin. Nonweightbearing - left lower extremity. Up with assist only. DC plans for SNF in progress. Likely DC tomorrow. Follow up outpatient with Dr. Lira next week
[2018-07-29] MEDS: ATORVASTATIN 10 MG TAB PO SCH (21:08)
[2018-07-30] MEDS: PENICILLIN POTASSIUM IVPB SCH ×6 (00:19→08:09)
[2018-07-30] MEDS: DEXTROSE 5% IVPB SCH ×6 (00:19→08:09)
[2018-07-30] MEDS: WATER IVPB SCH ×6 (00:19→08:09)
[2018-07-30] MEDS: HYDROcodone/APAP 5-325MG 1 EACH TAB PO PRN ×3 (02:14→17:28)
[2018-07-30] MEDS: LEVOTHYROXINE 88 MCG TAB PO SCH (06:08)
[2018-07-30 07:29] VITALS: RESP 16
[2018-07-30] MEDS ORDERED: PANTOPRAZOLE 40 MG TABLET PO SCH (07:30)
[2018-07-30] MEDS: SODIUM CHLORIDE 0.9% 1,000 ML IV SCH (08:09)
[2018-07-30] MEDS: CHOLECALCIFEROL 1,000 UNIT TAB PO SCH (09:34)
[2018-07-30] MEDS: VENLAFAXINE HCL ER 150 MG CAP PO SCH (09:35)
[2018-07-30] MEDS: CYANOCOBALAMIN 500 MCG TAB PO SCH (09:35)
[2018-07-30] MEDS: MULTIVITAMINS, THERA 1 EACH TAB PO SCH (09:35)
[2018-07-30] MEDS: MEMANTINE 10 MG TAB PO SCH (09:36)
[2018-07-30] MEDS: ENOXAPARIN 40 MG/0.4 ML SYRINGE SQ SCH (09:36)
[2018-07-30] MEDS: DONEPEZIL 10 MG TAB PO SCH (09:36)
[2018-07-30] MEDS: Dextroamphetamine/Amphetamine [Adderall] 30 MG PO SCH (09:37)
--- NOTE | 2018-07-30 11:51 | P.PN ---
Subjective Progress Note Date: 07/30/18 The patient states that the pain is mild and tolerable. She did notice some bloody drainage around the edge of the splint and was concerned. She has been moving more and was able to get to a chair with assistance. Objective - Vital Signs Vital signs: Vital Signs Temp 98.2 F 07/30/18 07:29 Pulse 71 07/30/18 07:29 Resp 16 07/30/18 07:29 BP 117/71 07/30/18 07:29 Pulse Ox 94 L 07/30/18 07:29 Intake & Output 07/29/18 07/30/18 07/30/18 18:59 06:59 18:59 Intake Total 1750 1250 Output Total 600 Balance 1150 1250 Intake: Intake, IV Titration 1200 1250 Amount Penicillin G Potassium 4, 200 000,000 unit In Dextrose 5% in Water 100 ml @ 100 mls/hr IVPB Q4HR CODY Rx#: [id number] Sodium Chloride 0.9% 1, 1000 1250 000 ml @ 125 mls/hr IV . Q8H CODY Rx#:[id number] Oral 550 Output: Urine 600 Other: Voiding Method Bedpan Bedpan # Voids 3 2 - Exam Left lower extremity: The cast padding at the proximal end of the splint is wet with mild sanguinous drainage. The TEJA wrap was removed. There is no active bleeding but there is evidence of appropriate drainage from the proximal pin sites. Windowed distally to reveal moderate persisting edema around the anterior ankle. No wrinkles. No fracture blisters. No purulence or visible dehiscence around the medial wound. Additional clean cast padding and Teja wraps were applied. - Labs CBC & Chem 7: 07/29/18 17:05 07/27/18 13:30 Labs: Abnormal Lab Results - Last 24 Hours (Table) 07/29/18 Range/Units 17:05 RBC 3.32 L (3.80-5.40) m/uL Hgb 10.2 L (11.4-16.0) gm/dL Hct 31.0 L (34.0-46.0) % Plt Count 122 L (150-450) k/uL Assessment and Plan Assessment: 1. Postoperative day #3 status post I&D and application of external fixator for open left trimalleolar ankle fracture-dislocation 2. Nicotine addiction/tobacco abuse Plan: Splint padding reinforced and rewrapped. Continue ice and elevation of the left ankle. PRN pain management. DVT prophylaxis with low molecular weight heparin. Nonweightbearing - left lower extremity. Up with assist only. Stable for DC to SNF. Follow up outpatient with Dr. Lira next week.
--- NOTE | 2018-07-30 13:22 | P.DS ---
Providers Date of admission: 07/27/18 14:33 Expected date of discharge: 07/30/18 Attending physician: Eddi Plummer DO Primary care physician: Vel Montes De Oca - Discharge Diagnosis(es) (1) Type I or II open trimalleolar fracture of left ankle Current Visit: Yes Status: Acute (2) Fall Current Visit: Yes Status: Acute (3) Fracture dislocation of left ankle joint Current Visit: Yes Status: Acute (4) Laceration of scalp Current Visit: Yes Status: Acute Hospital Course: The patient is a very pleasant 78-year-old female who was knocked over by her horse, resulting in an open left ankle fracture dislocation. She was admitted through the emergency department and taken to the operating room for irrigation and debridement and surgical stabilization with application of an external fixator and splint. Please see operative report for full details of the procedure. She was admitted for IV antibiotics and pain management. Her hospital course was uneventful. The surrounding soft tissue envelope is not yet amenable to definitive fixation. The patient will be discharged to a [facility] facility for interim care. At this time, her pain is well controlled with oral medication. Her vital signs are stable and she is deemed fit for discharge. Patient Condition at Discharge: Stable Plan - Discharge Summary New Discharge Prescriptions: New Cephalexin [Keflex] 500 mg PO Q8HR #21 cap HYDROcodone/APAP 5-325MG [[place] 5-325] 1 each PO Q6HR PRN #40 tab PRN Reason: Pain Enoxaparin [Lovenox] 40 mg SQ DAILY #30 syringe Continue Magnesium Oxide [Mag-Ox] 250 mg PO DAILY Vitamin E 100 unit PO DAILY Calcium Carbonate [Calcium] 1,200 mg PO DAILY Ascorbic Acid [Vitamin C] 1,000 mg PO DAILY Cholecalciferol (Vitamin D3) [Vitamin D3] 4,000 unit PO DAILY Multivitamins, Thera [Multivitamin (formulary)] 1 tab PO DAILY Cyanocobalamin (Vitamin B-12) [Vitamin B-12] 5,000 mcg PO DAILY Omeprazole [PriLOSEC] 20 mg PO QAM Niacin [Slo-Niacin] 500 mg PO DAILY Folic Acid 0.4 mg PO DAILY Venlafaxine HCl ER [Effexor XR] 150 mg PO DAILY Simvastatin [Zocor] 20 mg PO HS Dextroamphetamine/Amphetamine [Adderall] 30 mg PO DAILY Memantine HCl [Namenda Xr] 28 mg PO DAILY Levothyroxine Sodium [Synthroid] 88 mcg PO DAILY Galantamine HBr [Razadyne ER] 24 mg PO DAILY Discontinued Green Tea [place] Extract [Green Tea Extract] 150 mg PO DAILY Echinacea 400 mg PO DAILY Ubidecarenone [Co Q-10] 400 mg PO DAILY [place]-3 Fatty Acids [[place]-3] 1,000 mg PO DAILY Cranberry Fruit Extract [Cranberry] 4,200 mg PO DAILY Aspirin [[place] Aspirin EC] 81 mg PO DAILY Krill Oil 500 mg PO DAILY Discharge Medication List Ascorbic Acid [Vitamin C] 1,000 mg PO DAILY 07/27/18 [History] Calcium Carbonate [Calcium] 1,200 mg PO DAILY 07/27/18 [History] Cholecalciferol (Vitamin D3) [Vitamin D3] 4,000 unit PO DAILY 07/27/18 [History] Cyanocobalamin (Vitamin B-12) [Vitamin B-12] 5,000 mcg PO DAILY 07/27/18 [History] Dextroamphetamine/Amphetamine [Adderall] 30 mg PO DAILY 07/27/18 [History] Folic Acid 0.4 mg PO DAILY 07/27/18 [History] Galantamine HBr [Razadyne ER] 24 mg PO DAILY 07/27/18 [History] Levothyroxine Sodium [Synthroid] 88 mcg PO DAILY 07/27/18 [History] Magnesium Oxide [Mag-Ox] 250 mg PO DAILY 07/27/18 [History] Memantine HCl [Namenda Xr] 28 mg PO DAILY 07/27/18 [History] Multivitamins, Thera [Multivitamin (formulary)] 1 tab PO DAILY 07/27/18 [History] Niacin [Slo-Niacin] 500 mg PO DAILY 07/27/18 [History] Omeprazole [PriLOSEC] 20 mg PO QAM 07/27/18 [History] Simvastatin [Zocor] 20 mg PO HS 07/27/18 [History] Venlafaxine HCl ER [Effexor XR] 150 mg PO DAILY 07/27/18 [History] Vitamin E 100 unit PO DAILY 07/27/18 [History] Cephalexin [Keflex] 500 mg PO Q8HR #21 cap 07/29/18 [Rx] Enoxaparin [Lovenox] 40 mg SQ DAILY #30 syringe 07/30/18 [Rx] HYDROcodone/APAP 5-325MG [[place] 5-325] 1 each PO Q6HR PRN #40 tab 07/30/18 [Rx] Follow up Appointment(s)/Referral(s): Vel Montes De Oca MD [Primary Care Provider] - 1-2 days Jeremie Lira MD [Medical Doctor] - 08/05/18 10:00 am (Please call to schedule appointment for 08/05/[address] Lira.) Activity/Diet/Wound Care/Special Instructions: Keep dressing and splint clean, dry, and intact Non-weightbearing Elevate above the heart and ice ankle as much as possible Follow up with Dr. Lira on 08/05/2018. Please call [facility] with any questions or concerns, . Discharge Disposition: TRANSFER TO SNF/ECF
[2018-07-30 14:24] VITALS: BP 127/71; PULSE 65; TEMP 98
== END 2018-07-30 17:39 | DRG 494 ==
LOC: EC 12:51 → 4SSUR 14:33
PROVIDERS: ADMIT Orthopaedic Surgery; ATTEND Orthopaedic Surgery
PROC: 0QSK04Z Reposition Left Fibula with Internal Fixation Device, Open Approach (ICD-10-PCS; 2018-07-27)
PROC: 0QSH04Z Reposition Left Tibia with Internal Fixation Device, Open Approach (ICD-10-PCS; 2018-07-27)
PROC: 0QSH04Z Reposition Left Tibia with Internal Fixation Device, Open Approach (ICD-10-PCS; 2018-07-27)
PROC: 0QSKXZZ Reposition Left Fibula, External Approach (ICD-10-PCS; 2018-07-27)
PROC: 0QSHXZZ Reposition Left Tibia, External Approach (ICD-10-PCS; 2018-07-27)
PROC: 0QSHXZZ Reposition Left Tibia, External Approach (ICD-10-PCS; 2018-07-27)
PROC: 3E0234Z Introduction of Serum, Toxoid and Vaccine into Muscle, Percutaneous Approach (ICD-10-PCS; 2018-07-27)
PROC: 0HQ0XZZ Repair Scalp Skin, External Approach (ICD-10-PCS; principal; 2018-07-27 15:46)
DX: S82.852B Displaced trimalleolar fracture of left lower leg, initial encounter for open fracture type I or II (principal); G30.9 Alzheimer's disease, unspecified; F02.80 Dementia in other diseases classified elsewhere, unspecified severity, without behavioral disturbance, psychotic disturbance, mood disturbance, and anxiety; E07.9 Disorder of thyroid, unspecified; E78.5 Hyperlipidemia, unspecified; S01.01XA Laceration without foreign body of scalp, initial encounter; G47.419 Narcolepsy without cataplexy; F32.9 Major depressive disorder, single episode, unspecified; K21.9 Gastro-esophageal reflux disease without esophagitis; F17.210 Nicotine dependence, cigarettes, uncomplicated; Z71.6 Tobacco abuse counseling; Z79.82 Long term (current) use of aspirin; Z79.890 Hormone replacement therapy; Z79.899 Other long term (current) drug therapy; Z85.3 Personal history of malignant neoplasm of breast; Z85.820 Personal history of malignant melanoma of skin; Z98.890 Other specified postprocedural states; W01.0XXA Fall on same level from slipping, tripping and stumbling without subsequent striking against object, initial encounter; Y92.71 Barn as the place of occurrence of the external cause; Z23 Encounter for immunization
CPT/HCPCS: 12002; 27818; 36415; 70450; 71045; 72125; 72170; 80053; 85025; 85610; 85730; 86850; 86900; 86901; 90471; 90715; 96361; 96374; 96375; 99152; 99153; 99291

== ENCOUNTER 2018-08-21 07:18 | Day surgery (SDC) | payer MEDICARE ==
[2018-08-19 10:13] VITALS: BMI 26.6
[~2018-08-21 07:18] MED LIST: DEXAMETHASONE SOD PHOSPHATE 10 MG/ML 1 ML VIAL IV ONE; LIDOCAINE 1% 20 ML VIAL (10MG/ML) FOR IV START INTRADERMA PRN; MIDAZOLAM 2 MG/2 ML VIAL IV PRN; ONDANSETRON 4 MG/2 ML VIAL IVP ONE; SCOPOLAMINE 1.5MG/72HR PATCH TRANSDERM ONE; ceFAZolin IN SWFI 2 GM/20 ML SYRINGE IVP ONE
[2018-08-21] MEDS: LACTATED RINGERS 1,000 ML IV SCH ×3 (07:46→23:44)
[2018-08-21] MEDS ORDERED: GLYCOPYRROLATE 0.2 MG/ML 2 ML VIAL ONE (08:40)
[2018-08-21] MEDS ORDERED: ePHEDrine SULFATE/0.9% NACL/PF 50 MG/5 ML SYRINGE IV ONE (08:40)
[2018-08-21] MEDS ORDERED: PHENYLEPHRINE-0.9% NACL SYG 1 MG/10 ML SYRINGE ONE (08:40)
[2018-08-21] MEDS ORDERED: fentaNYL (PF) 50 MCG/ML 2 ML AMP ONE (08:40)
[2018-08-21] MEDS ORDERED: ROCURONIUM BROMIDE 10 MG/ML 10 ML VIAL IV ONE (08:40)
[2018-08-21] MEDS ORDERED: PROPOFOL 10 MG/ML 20 ML VIAL IV ONE (08:40)
[2018-08-21] MEDS ORDERED: SUCCINYLCHOLINE CHLORIDE 100 MG/5 ML SYR IV ONE (08:40)
[2018-08-21] MEDS ORDERED: NEOSTIGMINE 1 MG/ML 10 ML VIAL ONE (08:40)
[2018-08-21] MEDS ORDERED: ROPIVACAINE 5 MG/ML 30 ML VIAL ONE (08:40)
[2018-08-21] MEDS ORDERED: LIDOCAINE 1% INJ 10MG/ML (20 ML MDV) ONE (08:40)
[2018-08-21] MEDS ORDERED: LACTATED RINGERS 1,000 ML IV ONE (09:46)
--- NOTE | 2018-08-21 11:26 | P.OP ---
Date of Procedure: 08/21/18 Preoperative Diagnosis: 1. Open left bimalleolar ankle fracture dislocation status post application of ankle spanning external fixator 2. Current every day cigarette smoker Postoperative Diagnosis: Same Procedure(s) Performed: 1. Open reduction internal fixation of left trimalleolar ankle fracture 2. Removal of left ankle spanning external fixator 3. Manual application of joint stress by physician for imaging, left ankle 4. Application of short leg splint by physician, left ankle Anesthesia: FALGUNI, regional Surgeon: Jeremie Lira Shot Tube Machine Tender #1: Yulisa Stone Estimated Blood Loss (ml): 50 IV fluids (ml): 1,300 Pathology: none sent Condition: stable Disposition: PACU Indications for Procedure: The patient is a very pleasant 78-year-old female with a medical history significant for cigarette smoking who sustained an open left ankle fracture dislocation several weeks ago. She was seen by my partner personal banker who performed and I&D an ankle spanning external fixator to stabilize her. Following this stabilizing surgery she had a computed tomography scan. She was discharged to rehab and follow-up was arranged with me in the office. We allowed for soft tissue swelling to resolve. Once the swelling had resolved to the point there was wrinkling of the skin and resolution of the fracture blisters we discussed definitive fixation. I recommended operative fixation. We discussed potential risks and complications of surgery including but not limited to risk of anesthesia, superficial infection, deep infection, delayed wound healing, wound necrosis, nonunion for fractures, malunion of her fractures, malreduction of the ankle mortise or syndesmosis, symptomatically hardware, chronic pain, failure of fixation, postoperative displacement of the ankle mortise, post radical arthritis, DVT, PE, other medical complications, and possibly loss of life or limb. The patient understands that she is at a higher risk of having a complication due to her cigarette smoking. She was strongly encouraged to quit. With the patient and her were well aware of the potential risks and Locations of surgery and provided their verbal and written consent to go forward with the above-mentioned procedures. Description of Procedure: The patient was identified and prepped with holding and the correct left leg was marked with my initials. I reviewed the consent form with the patient and her . The Teja wrap was taken over the ankle and the skin appeared amenable for surgery. The patient was given a popliteal and saphenous nerve block by anesthesia. She was then brought back to the OR. She was positioned on the or table or a general anesthetic and preoperative antibiotics were given. A timeout was then performed identifying the correct patient, operative extremity, and procedure. At this point the external fixator was removed. After the external fixator was removed a tourniquet was applied to the proximal aspect of the left leg. The right leg was secured to the table with foam tape. All bony prominences were well-padded. The left leg was then prepped and draped in standard sterile fashion. The leg was elevated, exsanguinated with an Esmarch bandage, and the tourniquet was inflated to 250 mmHg. I began by outlining an incision for a straight lateral approach the distal fibula. Skin incision made with a scalpel and dissection was carried down carefully through the subcu tissues tissue tenotomy scissors. The periosteum over the distal fibula and fascia over the peroneal muscles was sharply elevated in line with skin incision. The fibula fracture was found to be comminuted with early interval healing. Due to the amount of comminution was not able to place an interfragmentary lag screws. The distal fragment was grasped with a [id number] reduction clamp and traction was pulled distally bringing the fibula out to length. It was then pinned into the talus to remain pain length. A lateral view was then taken and the posterior malleolus appeared to be reduced through ligamentotaxis. The talus was centered under the tibial plafond. A large [id number] reduction clamp was used with 1 sim over the posterior malleolus and the second sim over the anterolateral aspect of the distal tibia through stab wound. Reduction of the posterior malleolus was verified with fluoroscopy on a mortise and lateral view. I then placed a partially threaded cannulated 4.0 mm screws a crossed the posterior malleolus fragment. The clamp was removed and the reduction held. There was no posterior subluxation of the talus on the lateral view following fixation of the posterior malleolus. Attention was then turned to the fibula. A precontoured distal fibular locking plate was placed over the lateral aspect of distal fibula. A nonlocking 3.5 screws placed just proximal to the fracture bringing the plate down to bone. A second nonlocking 3.5 malleolar screws placed in the most proximal hole of the plate centering it on the fibula. Distally a nonlocking 2.7 mm screw was placed to the ring the plate down to bone. Locking 2.7 mm screws were then placed throughout the cluster of holes in the distal fragment. A third nonlocking 3.5 m screw was placed proximally followed by a 3.5 mm syndesmotic screw just proximal to the incisura for additional fixation to the patient's cigarette smoking and poor bone quality. Attention was then turned medially. The open wound was extended anteriorly just distal extent. Dissection was carried through subcutaneous tissue until the medial malleolus fracture fragment was identified. It was cleaned up and then a [id number] reduction clamp was used with 1 sim on the tip of the medial malleolus and a second sim through a drill hole just proximal to the fracture. The patient had extremely poor bone quality and the clamp started pulling through the bone above the fracture. Once the fracture was adequately compressed nonlocking 2.7 mm screws both measuring 46 mm placed. At this point final fluoroscopic images were taken. On the mortise view the talus appeared to be centered under the tibial plafond and the hardware was in acceptable position. The fibula was out to length. On a manual external rotation stress x-ray there is no widening of the medial clear space or incisura. I interpreted this as a stable ankle mortise. On a true lateral of the ankle there was no posterior subluxation with posterior directed force on the ankle. I interpreted this as a stable ankle construct. Both wounds were copiously irrigated and closed in layers. Sterile dressing consisting of Betadine soaked Adaptic, 4 x 4, was applied. The drapes were taken down and a well-padded bulky Bui splint was placed. The tourniquet was let down. The patient was awoken from her anesthetic, transferred to a gurney, and brought to recovery without procedure well. Yulisa Stone PA-C was required as the oncology physician assistant for patient positioning, exposure, retraction, placement of hardware, closure of wounds, and apposition of splint Plan: The patient is going to be admitted overnight for IV antibiotics, therapy, and a medical consultation. She is remain strictly nonweightbearing on her operative extremity. We will check a vitamin D level. She can discharge home when her pain is controlled, she is medically stable, and she passes therapy. She will need DVT prophylaxis with Lovenox while in-house and will be discharged home on aspirin.
[2018-08-21] MEDS ORDERED: HYDROmorphone 0.5 MG/0.5 ML SYRINGE IVP PRN ×2 (11:45)
[2018-08-21] MEDS ORDERED: HYDROcodone/APAP 5-325MG 1 EACH TAB PO PRN (11:45)
[2018-08-21] MEDS ORDERED: ONDANSETRON 4 MG/2 ML VIAL IVP PRN (11:45)
[2018-08-21] MEDS: HYDROmorphone 0.5 MG/0.5 ML SYRINGE IVP PRN ×5 (11:52→20:21)
--- NOTE | 2018-08-21 11:58 | XR ---
EXAMINATION TYPE: XR ankle limited LT DATE OF EXAM: 08/21/2018 COMPARISON: NONE HISTORY: Postop TECHNIQUE: 4 views submitted FINDINGS: Postsurgical change in near-anatomic alignment. IMPRESSION: Postsurgical change
--- NOTE | 2018-08-21 12:39 | FL ---
EXAMINATION TYPE: FL guidance operating room DATE OF EXAM: 08/21/2018 HISTORY: Flouroscopy time 3 minutes and 52 seconds of fluoroscopy provided. IMPRESSION: 1. Fluoroscopy time.
[2018-08-21] MEDS: HYDROcodone/APAP 5-325MG 1 EACH TAB PO PRN (15:40)
[2018-08-21] MEDS: ceFAZolin IN SWFI 2 GM/20 ML SYRINGE IVP SCH ×2 (15:41→23:38)
--- NOTE | 2018-08-21 17:34 | P.CONS ---
History of Present Illness - Reason for Consult Consult date: 08/21/18 Hypothyroidism Requesting physician: Jeremie Lira - Chief Complaint left ankle pain - History of Present Illness Patient is a 78-year-old female past medical history of dyslipidemia, hypothyroidism, GERD, and Alzheimer's disease who presented for elective repair of left bimalleolar fracture. She underwent ORIF on 08/21 and tolerated procedure well without any immediate postoperative complications. Patient seen and examined at bedside. She states that she tripped and fell several weeks ago sustaining a fracture. She's been following with Dr. Lira in the office. She denies any syncopal event associated with this fall. She reports left ankle pain since falling. She's had some decreased appetite. She denies any recent cough, cold, fever, flu and she has otherwise been in her normal state of health. She has been using a wheelchair since sustaining her fracture, prior to that she was walking independently, and was even riding horses. Review of Systems Pertinent positives and negatives as discussed in HPI, a complete review of systems was performed and all other systems are negative. Past Medical History Past Medical History: Cancer, Dementia, GERD/Reflux, Hyperlipidemia, Pneumonia, Thyroid Disorder Additional Past Medical History / Comment(s): Alzheimer's disease, narcolepsy, GERD. Hx right leg malignant melanoma 1963, right breast tumor treated with excision and radiation 5 yrs ago. Hx Pneumonia yrs ago. History of Any Multi-Drug Resistant Organisms: None Reported Past Surgical History: Hernia Repair Additional Past Surgical History / Comment(s): D&C, cyst removal, right sided lumpectomy, excision of right leg malignant melanoma. Past Anesthesia/Blood Transfusion Reactions: No Reported Reaction Past Psychological History: Depression Smoking Status: Current every day smoker Past Alcohol Use History: None Reported Additional Past Alcohol Use History / Comment(s): Started smoking at 21 years old and smoked a 1/2 pack a day, currently down to 3 cigarettes per day. Past Drug Use History: None Reported Additional History: Lives with her - Past Family History Mother Additional Family Medical History / Comment(s): Alzheimer's disease. Father Family Medical History: Congestive Heart Failure (CHF) Medications and Allergies Home Medications Medication Instructions Recorded Confirmed Type Ascorbic Acid [Vitamin C] 1,000 mg PO DAILY 07/27/18 08/19/18 History Calcium Carbonate [Calcium] 1,200 mg PO DAILY 07/27/18 08/19/18 History Cholecalciferol (Vitamin D3) 4,000 unit PO DAILY 07/27/18 08/19/18 History [Vitamin D3] Cyanocobalamin (Vitamin B-12) 5,000 mcg PO DAILY 07/27/18 08/19/18 History [Vitamin B-12] Dextroamphetamine/Amphetamine 30 mg PO QAM 07/27/18 08/21/18 History [Adderall] Folic Acid 0.4 mg PO DAILY 07/27/18 08/19/18 History Galantamine HBr [Razadyne ER] 24 mg PO QAM 07/27/18 08/21/18 History Levothyroxine Sodium [Synthroid] 88 mcg PO QAM 07/27/18 08/21/18 History Magnesium Oxide [Mag-Ox] 250 mg PO DAILY 07/27/18 08/19/18 History Memantine HCl [Namenda Xr] 28 mg PO QAM 07/27/18 08/21/18 History Multivitamins, Thera [Multivitamin 1 tab PO DAILY 07/27/18 08/19/18 History (formulary)] Niacin [Slo-Niacin] 500 mg PO DAILY 07/27/18 08/19/18 History Simvastatin [Zocor] 20 mg PO HS 07/27/18 08/21/18 History Venlafaxine HCl ER [Effexor XR] 150 mg PO QAM 07/27/18 08/21/18 History Vitamin E 100 unit PO DAILY 07/27/18 08/19/18 History Cephalexin [Keflex] 500 mg PO Q6H 08/19/18 08/21/18 History Tramadol (Unknown Dose) 1 tab PO Q4-6H PRN 08/19/18 08/21/18 History Allergies Allergy/AdvReac Type Severity Reaction Status Date / Time bee venom protein (honey bee) Allergy Rash/Hives Verified 08/19/18 09:37 Sulfa (Sulfonamide Allergy Unknown Verified 08/19/18 09:37 Antibiotics) Childhood Physical Exam Osteopathic Statement: *. No significant issues noted on an osteopathic structural exam other than those noted in the History and Physical/Consult. Vitals: Vital Signs Temp Pulse Pulse Resp BP BP Pulse Ox 08/21/18 14:35 97.7 F 86 16 110/67 94 L 08/21/18 13:15 92 18 113/58 97 08/21/18 13:00 76 18 125/58 96 08/21/18 12:47 86 16 102/53 98 08/21/18 12:32 82 18 113/56 97 08/21/18 12:17 78 16 122/57 96 08/21/18 12:02 88 16 136/60 96 08/21/18 11:54 93 16 129/57 96 08/21/18 11:38 99.3 F 92 16 132/60 96 08/21/18 07:42 98.4 F 70 16 149/67 95 Intake and Output 08/21/18 08/21/18 08/21/18 06:59 14:59 22:59 Intake Total 1700 Output Total 50 Balance 1650 Intake: IV 1700 Output: Estimated Blood Loss 50 General: non toxic, no distress, appears at stated age, normal weight Derm: no unusual rashes/lesions no unusual ecchymoses, warm, dry Head: atraumatic, normocephalic, symmetric Eyes: EOMI, no lid lag, anicteric sclera, pupils equal round reactive to light ENT: Nose and ears atraumatic, no thrush, no pharyngeal erythema Mouth: no lip lesion, mucus membranes dry Cardiovascular: S1S2 reg, no murmur, positive posterior tibial pulse bilateral, no edema, capillary refill less than 2 seconds Lungs: CTA bilateral, no rhonchi, no rales , no accessory muscle use Abdominal: soft, nontender to palpation, no guarding, no appreciable organomegaly, normal bowel sounds Ext: no gross muscle atrophy, able to wiggle toes on her left, moving her right lower extremity without difficulty, no contractures, Neuro: CN II-XI grossly intact, no tremors Psych: Alert, oriented, appropriate affect Assessment and Plan Assessment: Patient is a 78-year-old female status post ORIF of left ankle fracture Hypothyroidism -Resume Synthroid Dyslipidemia -Resume niacin and statin GERD -Not on chronic medications -add when necessary Tums Alzheimer's disease -Resume Namenda and galantamine Narcolepsy -Home Adderall use if available Thank you for allowing us to participate in the care of this patient. Do not hesitate to contact us with questions. Someone can be reached from the [facility] hospitalist group at all hours of the day at [phone].
[2018-08-21] MEDS: MEMANTINE 10 MG TAB PO SCH (20:15)
[2018-08-21] MEDS: ATORVASTATIN 10 MG TAB PO SCH (20:15)
[2018-08-21] MEDS ORDERED: SENNOSIDES-DOCUSATE SODIUM 1 EACH TAB PO PRN (21:00)
[2018-08-21 23:59] LABS: Basophils % (A) 0 %; Eosinophils # (A) 0.1 k/uL (0-0.7); Eosinophils % (A) 1 %; HCT 36.3 % (34.0-46.0); HGB 11.7 gm/dL (11.4-16.0); Hypochromasia Slight; Lymphocytes % (A) 14 %; MCH 30.6 pg (25.0-35.0); MCHC 32.3 g/dL (31.0-37.0); MCV 94.9 fL (80.0-100.0); Mean Platelet Volume 7.3; Monocytes # (A) 0.4 k/uL (0-1.0); Monocytes % (A) 5 %; Neutrophils # (A) 5.7 k/uL (1.3-7.7); Neutrophils % (A) 79 %; RBC 3.82 m/uL (3.80-5.40); RDW 14.2 % (11.5-15.5); WBC 7.3 k/uL (3.8-10.6)
[2018-08-22 00:02] LABS: Platelet Count 184 k/uL (150-450)
[2018-08-22] MEDS: HYDROmorphone 0.5 MG/0.5 ML SYRINGE IVP PRN ×3 (02:33→20:13)
[2018-08-22] MEDS: LACTATED RINGERS 1,000 ML IV SCH ×3 (03:43→22:24)
[2018-08-22] MEDS: HYDROcodone/APAP 5-325MG 1 EACH TAB PO PRN ×3 (04:44→16:06)
[2018-08-22] MEDS: LEVOTHYROXINE 88 MCG TAB PO SCH (04:45)
[2018-08-22] MEDS: hydrOXYzine PAMOATE 25 MG CAP PO PRN ×3 (04:45→16:06)
--- NOTE | 2018-08-22 07:05 | P.ANPRN ---
Procedure Note - Anesthesia - Nerve Block Performed Left Popliteal Single Time Out Performed: Yes Date of Procedure: 08/21/18 Procedure Start Time: 08:08 Procedure Stop Time: 08:15 Location of Patient Procedure: PreOp Indication: Acute Post-Operative Pain, Requested by physician Sedation Type: Sedate with meaningful contact maintained Preparation: Sterile Prep Position: Right Lateral Needle Types: Pajunk Needle Gauge: 21 Technique: Ultrasound (ropi .5% 30cc) Blood Aspirated: No Pain Paresthesia on Injection Noted: No Resistance on Injection: Normal Events: Uneventful and Well Tolerated
--- NOTE | 2018-08-22 10:14 | P.PN ---
Subjective Progress Note Date: 08/22/18 Principal diagnosis: left ankle pain Patient is a 78-year-old female past medical history of dyslipidemia, hypothyroidism, GERD, and Alzheimer's disease who presented for elective repair of left bimalleolar fracture. She underwent ORIF on 08/21 and tolerated procedure well without any immediate postoperative complications. Patient seen and examined at bedside. No chest pain, SOB, nausea, or vomiting. Still having pain in her left leg and norco is partially effective. Objective - Vital Signs Vital signs: Vital Signs Temp 99.4 F 08/22/18 07:28 Pulse 65 08/22/18 07:28 Resp 15 08/22/18 07:28 BP 133/68 08/22/18 07:28 Pulse Ox 96 08/22/18 07:28 Intake & Output 08/21/18 08/22/18 08/22/18 18:59 06:59 18:59 Intake Total 1922 1400 180 Output Total 50 Balance 1872 1400 180 Intake: IV 1700 Intake, IV Titration 1400 Amount Lactated Ringers 1,000 ml 1400 @ 100 mls/hr IV .Q10H CODY Rx#:[id number] Oral 222 180 Output: Estimated Blood Loss 50 Other: Voiding Method Bedside Commode # Voids 1 - Exam General: non toxic, no distress, appears at stated age Derm: warm, dry Head: atraumatic, normocephalic, symmetric Eyes: EOMI, no lid lag, anicteric sclera Mouth: no lip lesion, mucus membranes moist Cardiovascular: S1S2 reg, no murmur, positive posterior tibial pulse bilateral, Lungs: CTA bilateral, no rhonchi, no rales , no accessory muscle use Abdominal: soft, nontender to palpation, no guarding, no appreciable organomegaly Ext: no gross muscle atrophy, no edema, no contractures Neuro: CN II-XI grossly intact, no focal neuro deficits Psych: Alert, oriented, appropriate affect - Labs CBC & Chem 7: 08/21/18 22:06 Assessment and Plan Assessment: Patient is a 78-year-old female status post ORIF of left ankle fracture. Keflex per ortho Hypothyroidism -Synthroid Dyslipidemia -niacin and statin GERD -Not on chronic medications Alzheimer's disease -Namenda and galantamine Narcolepsy -Home Adderall use if available Medically optimized for discharge at the discretion of primary service, ortho.
[2018-08-22] MEDS: ENOXAPARIN 40 MG/0.4 ML SYRINGE SQ SCH (10:15)
[2018-08-22] MEDS: DONEPEZIL 10 MG TAB PO SCH (10:16)
[2018-08-22] MEDS: MAGNESIUM OXIDE 400 MG TAB PO SCH (10:16)
[2018-08-22] MEDS: FOLIC ACID 1 MG TAB PO SCH (10:16)
[2018-08-22] MEDS: NIACIN TR 500 MG CAPLET PO SCH (10:16)
[2018-08-22] MEDS: ASCORBIC ACID 500 MG TAB PO SCH (10:16)
[2018-08-22] MEDS: MULTIVITAMINS, THERA 1 EACH TAB PO SCH (10:17)
[2018-08-22] MEDS: MEMANTINE 10 MG TAB PO SCH ×2 (10:17→20:13)
[2018-08-22] MEDS: CHOLECALCIFEROL 1,000 UNIT TAB PO SCH (10:17)
[2018-08-22] MEDS: CALCIUM CARBONATE 500 MG CHEWABLE PO SCH (10:17)
[2018-08-22] MEDS: VENLAFAXINE HCL ER 150 MG CAP PO SCH (10:24)
[2018-08-22] MEDS: NON-FORMULARY DRUG (Dextroamphetamine/Amphetamine [Adderall] 30 MG) PO SCH (10:25)
[2018-08-22] MEDS: CYANOCOBALAMIN 5000 MCG PO SCH (10:25)
--- NOTE | 2018-08-22 14:45 | P.PN ---
Subjective Progress Note Date: 08/22/18 This patient is a 78-year-old female with past medical history of hypothyroidism, hyperlipidemia, GERD, and Alzheimer's disease that presented to [facility] on 08/21/18 and underwent a removal of left ankle spanning external fixator and open reduction internal fixation of left trimalleolar ankle fracture with Dr. Lira. Today's postoperative day #1. The patient states her pain has been uncontrolled throughout the morning, although once given oral [place] she states it is controlled her pain better than the IV Dilaudid. Patient has been up with physical therapy today, and she states she had no issues with transferring. She states she has been remaining strictly nonweightbearing on the operative leg. She denies numbness or tingling of the left lower extremity. She is tolerating her diet well. She denies chest pain, shortness of breath, nausea, vomiting. She denies any new complaints or concerns. Objective - Vital Signs Vital signs: Vital Signs Temp 99.4 F 08/22/18 07:28 Pulse 65 08/22/18 08:05 Resp 15 08/22/18 08:05 BP 133/68 08/22/18 07:28 Pulse Ox 96 08/22/18 07:28 Intake & Output 08/21/18 08/22/18 08/22/18 18:59 06:59 18:59 Intake Total 1922 1400 180 Output Total 50 Balance 1872 1400 180 Intake: IV 1700 Intake, IV Titration 1400 Amount Lactated Ringers 1,000 ml 1400 @ 100 mls/hr IV .Q10H CODY Rx#:[id number] Oral 222 180 Output: Estimated Blood Loss 50 Other: Voiding Method Bedside Commode Bedside Commode Bedpan # Voids 1 1 - Exam On examination, the patient is lying in bed in no apparent distress. Patient is alert and oriented 3. Her is bedside. On inspection of the left lower extremity, there is a bulky Bui splint in place. Bulky Bui splint is clean, dry, intact. Her toes are warm and well-perfused with brisk capillary refill. She is able to wiggle her toes without pain or issue. Right calf is soft and nontender to palpation. - Labs CBC & Chem 7: 08/21/18 22:06 Assessment and Plan Assessment: Status-post removal of left ankle spanning external fixator and open reduction internal fixation of left trimalleolar ankle fracture, postoperative day #1. Plan: - Strict nonweightbearing of the operative leg. Ice and elevate the left lower extremity to decrease pain and swelling. Keep bulky Bui splint in place. - Physical therapy for gait and balance training. - Continue current pain management. - Lovenox while she is inpatient for anticoagulation. Aspirin on discharge. - 2 doses of postoperative antibiotics complete. - Appreciate internal medicine consult for medical management. - Anticipate discharge home in the next 24 hours.
[2018-08-22] MEDS: ATORVASTATIN 10 MG TAB PO SCH (20:13)
[2018-08-23] MEDS: HYDROcodone/APAP 5-325MG 1 EACH TAB PO PRN ×2 (02:15→10:43)
[2018-08-23 02:46] VITALS: PULSE 67
[2018-08-23] MEDS: LACTATED RINGERS 1,000 ML IV SCH ×2 (03:49→10:33)
[2018-08-23] MEDS: LEVOTHYROXINE 88 MCG TAB PO SCH (06:16)
[2018-08-23] MEDS: HYDROmorphone 0.5 MG/0.5 ML SYRINGE IVP PRN (06:16)
[2018-08-23 07:45] VITALS: BP 143/66; RESP 12; TEMP 98
[2018-08-23] MEDS: ASCORBIC ACID 500 MG TAB PO SCH (10:31)
[2018-08-23] MEDS: DONEPEZIL 10 MG TAB PO SCH (10:31)
[2018-08-23] MEDS: MAGNESIUM OXIDE 400 MG TAB PO SCH (10:31)
[2018-08-23] MEDS: MULTIVITAMINS, THERA 1 EACH TAB PO SCH (10:31)
[2018-08-23] MEDS: CHOLECALCIFEROL 1,000 UNIT TAB PO SCH (10:31)
[2018-08-23] MEDS: CALCIUM CARBONATE 500 MG CHEWABLE PO SCH (10:31)
[2018-08-23] MEDS: NIACIN TR 500 MG CAPLET PO SCH (10:32)
[2018-08-23] MEDS: VENLAFAXINE HCL ER 150 MG CAP PO SCH (10:32)
[2018-08-23] MEDS: FOLIC ACID 1 MG TAB PO SCH (10:32)
[2018-08-23] MEDS: NON-FORMULARY DRUG (Dextroamphetamine/Amphetamine [Adderall] 30 MG) PO SCH (10:32)
[2018-08-23] MEDS: ENOXAPARIN 40 MG/0.4 ML SYRINGE SQ SCH (10:33)
[2018-08-23] MEDS: CYANOCOBALAMIN 5000 MCG PO SCH (10:34)
[2018-08-23] MEDS: MEMANTINE 10 MG TAB PO SCH (10:34)
[2018-08-23] MEDS: hydrOXYzine PAMOATE 25 MG CAP PO PRN (10:44)
--- NOTE | 2018-08-23 11:16 | P.DS ---
Providers Date of admission: 08/21/2018 Expected date of discharge: 08/23/18 Attending physician: Jeremie Lira Consults: 08/21/18 11:54 Consult Physician Routine Consulting Provider: Maria R Kwong Consult Reason/Comments: Medical management Do you want consulting provider notified?: Yes Primary care physician: Vel Roche Tavon - Discharge Diagnosis(es) (1) Trimalleolar fracture of left ankle Current Visit: Yes Status: Acute (2) Left ankle pain Current Visit: Yes Status: Acute (3) Dyslipidemia Current Visit: Yes Status: Acute (4) Open left ankle fracture Current Visit: No Status: Acute Hospital Course: This is a pleasant 78-year-old female who presented with open trimalleolar ankle fracture status post application of ankle spanning external fixator. She was admitted for open reduction internal fixation of left trimalleolar ankle fracture with removal of left ankle spanning external fixator. The patient tolerated the procedure well and did well postoperatively. She was initially having some difficulty with pain control but feels her symptoms have continued to improve and her pain is better controlled. She feels she is ready for discharge today. Condition on day of discharge stable. Patient will be discharged home. Patient was cleared preoperatively for surgery. Patient currently denies any nausea, vomiting, fever, or chills. Patient is eating and voiding freely without difficulty. We discussed patient will continue to be strict nonweightbearing on the left lower extremity. She must keep the splint clean, dry, and intact. She may use crutches, scooter, or other walking aid to aid in ambulation as needed. She is encouraged to elevate and apply ice over the left lower extremity, and support as needed. Prescriptions have been written for aspirin, Colace, [place] 5 mg/25 mg, and Protonix. She may take his medications as prescribed. Patient has a past medical history which includes dyslipidemia, hypothyroidism, and Alzheimer's disease She will follow with Dr. Lira in 2 weeks for follow-up evaluation outpatient setting. Physical Exam on day of discharge: Patient is awake, alert, and oriented 3 Vital signs stable Good chest excursion with deep inspiration and expiration Abdomen soft nontender No signs or symptoms of DVT; no calf pain Bulky Bui splint and intact of the left lower extremity Splint is clean, dry, intact Patient is able to wiggle toes the left lower extremity without difficulty Neurovascular intact left lower extremity No pain with palpation over the left knee Procedures: Open reduction internal fixation of left trimalleolar ankle fracture with removal of left ankle spanning external fixator. Patient Condition at Discharge: Stable Plan - Discharge Summary Discharge Rx Participant: Yes New Discharge Prescriptions: New Aspirin 325 mg PO BID #28 tab Docusate [Colace] 100 mg PO BID #60 capsule Hydrocodone/Acetaminophen [[place] 5-325] 1 - 2 tab PO Q6HR PRN #40 tab PRN Reason: Pain Pantoprazole [Protonix] 40 mg PO DAILY #30 tablet.dr Continue Magnesium Oxide [Mag-Ox] 250 mg PO DAILY Vitamin E 100 unit PO DAILY Calcium Carbonate [Calcium] 1,200 mg PO DAILY Ascorbic Acid [Vitamin C] 1,000 mg PO DAILY Cholecalciferol (Vitamin D3) [Vitamin D3] 4,000 unit PO DAILY Multivitamins, Thera [Multivitamin (formulary)] 1 tab PO DAILY Cyanocobalamin (Vitamin B-12) [Vitamin B-12] 5,000 mcg PO DAILY Niacin [Slo-Niacin] 500 mg PO DAILY Folic Acid 0.4 mg PO DAILY Venlafaxine HCl ER [Effexor XR] 150 mg PO QAM Simvastatin [Zocor] 20 mg PO HS Dextroamphetamine/Amphetamine [Adderall] 30 mg PO QAM Memantine HCl [Namenda Xr] 28 mg PO QAM Levothyroxine Sodium [Synthroid] 88 mcg PO QAM Galantamine HBr [Razadyne ER] 24 mg PO QAM No Action Cephalexin [Keflex] 500 mg PO Q6H Tramadol (Unknown Dose) 1 tab PO Q4-6H PRN PRN Reason: Pain Discharge Medication List Ascorbic Acid [Vitamin C] 1,000 mg PO DAILY 07/27/18 [History] Calcium Carbonate [Calcium] 1,200 mg PO DAILY 07/27/18 [History] Cholecalciferol (Vitamin D3) [Vitamin D3] 4,000 unit PO DAILY 07/27/18 [History] Cyanocobalamin (Vitamin B-12) [Vitamin B-12] 5,000 mcg PO DAILY 07/27/18 [History] Dextroamphetamine/Amphetamine [Adderall] 30 mg PO QAM 07/27/18 [History] Folic Acid 0.4 mg PO DAILY 07/27/18 [History] Galantamine HBr [Razadyne ER] 24 mg PO QAM 07/27/18 [History] Levothyroxine Sodium [Synthroid] 88 mcg PO QAM 07/27/18 [History] Magnesium Oxide [Mag-Ox] 250 mg PO DAILY 07/27/18 [History] Memantine HCl [Namenda Xr] 28 mg PO QAM 07/27/18 [History] Multivitamins, Thera [Multivitamin (formulary)] 1 tab PO DAILY 07/27/18 [History] Niacin [Slo-Niacin] 500 mg PO DAILY 07/27/18 [History] Simvastatin [Zocor] 20 mg PO HS 07/27/18 [History] Venlafaxine HCl ER [Effexor XR] 150 mg PO QAM 07/27/18 [History] Vitamin E 100 unit PO DAILY 07/27/18 [History] Cephalexin [Keflex] 500 mg PO Q6H 08/19/18 [History] Tramadol (Unknown Dose) 1 tab PO Q4-6H PRN 08/19/18 [History] Aspirin 325 mg PO BID #28 tab 08/22/18 [Rx] Docusate [Colace] 100 mg PO BID #60 capsule 08/22/18 [Rx] Hydrocodone/Acetaminophen [[place] 5-325] 1 - 2 tab PO Q6HR PRN #40 tab 08/22/18 [Rx] Pantoprazole [Protonix] 40 mg PO DAILY #30 tablet. 08/23/18 [Rx] Follow up Appointment(s)/Referral(s): Jeremie Lira MD [Medical Doctor] - 2 Weeks (CALL OFFICE ON SATURDAY TO SCHEDULE APPOINTMENT, OFFICE CLOSED AT TIME OF DISCHARGE.) Patient Instructions/Handouts: *Surgery [facility] - Cast Care Instructions, ORIF of an Ankle Fracture (DC) Activity/Diet/Wound Care/Special Instructions: -Strict non-weight bearing on your operative leg. Do not remove your splint; Keep splint clean, dry, and intact -Use crutches, knee scooter, or a walker to ambulate after surgery. -Elevate and ice operative leg to help reduce swelling and control pain. -Take pain medications as prescribed. Take Colace as a stool softener. Take aspirin as prescribed for blood clot prevention. -Follow-up appointment with Dr. Lira in the office in 2 weeks. -Call the office with any questions or concerns, Take protonix once daily while on your aspirin 325 mg twice daily Discharge Disposition: HOME SELF-CARE
--- NOTE | 2018-08-23 17:21 | P.PN ---
Subjective Progress Note Date: 08/23/18 (Delayed charting patient seen a 1145) Principal diagnosis: left ankle pain Patient is a 78-year-old female past medical history of dyslipidemia, hypothyroidism, GERD, and Alzheimer's disease who presented for elective repair of left bimalleolar fracture. She underwent ORIF on 08/21 and tolerated procedure well without any immediate postoperative complications. Patient going home on ASA 325 mg BID- will add PPI with hx of GERD Patient seen and examined at bedside. Patient states pain is much better than yesterday. She denies any chest pain, shortness breath, nausea, or vomiting. She was like to take a PPI will taking her aspirin twice daily she has had signi ficant issues with GERD including vomiting when he gets severe. Objective - Vital Signs Vital signs: Vital Signs Temp 98 F 08/23/18 07:00 Pulse 67 08/23/18 02:45 Resp 12 08/23/18 07:00 BP 143/66 08/23/18 07:00 Pulse Ox 96 08/23/18 07:00 Intake & Output 08/22/18 08/23/18 08/23/18 18:59 06:59 18:59 Intake Total 1430 180 500 Balance 1430 180 500 Intake: Intake, IV Titration 800 Amount Lactated Ringers 1,000 ml 800 @ 100 mls/hr IV .Q10H C[facility] Rx#:[id number] Oral 630 180 500 Other: Voiding Method Bedside Commode Bedside Commode Bedpan # Voids 2 1 1 # Bowel Movements 1 - Exam General: non toxic, no distress, appears at stated age Derm: warm, dry Head: atraumatic, normocephalic, symmetric Eyes: EOMI, no lid lag, anicteric sclera Mouth: no lip lesion, mucus membranes moist Cardiovascular: S1S2 reg, no murmur, positive posterior tibial pulse bilateral, Lungs: CTA bilateral, no rhonchi, no rales , no accessory muscle use Ext: Left ankle with splint and Teja wrap in place, trace edema, able to wiggle toes Neuro: CN II-XI grossly intact, no focal neuro deficits Psych: Alert, oriented, appropriate affect - Labs CBC & Chem 7: 08/21/18 22:06 Assessment and Plan Assessment: Patient is a 78-year-old female status post ORIF of left ankle fracture. Keflex per ortho GERD -Patient has significant symptoms in the past. We will have her take Protonix 20 mg once daily while completing aspirin therapy for DVT prophylaxis. Patient is in agreement. She is aware she can use his medications as needed should she feels not necessary. Hypothyroidism -Synthroid Dyslipidemia -niacin and statin Alzheimer's disease -Namenda and galantamine Narcolepsy -Home Adderall use if available Medically optimized for discharge at the discretion of primary service, ortho.
== END 2018-08-23 15:15 | disposition home or self-care (01) ==
LOC: OR 07:18 → EDSTATUS 10:00 → 4SSUR 11:36 → OR 08-23 15:15
PROVIDERS: ATTEND Orthopaedic Surgery
DX: S82.852B Displaced trimalleolar fracture of left lower leg, initial encounter for open fracture type I or II (principal); W01.0XXA Fall on same level from slipping, tripping and stumbling without subsequent striking against object, initial encounter; E78.5 Hyperlipidemia, unspecified; E03.9 Hypothyroidism, unspecified; K21.9 Gastro-esophageal reflux disease without esophagitis; G30.9 Alzheimer's disease, unspecified; H53.8 Other visual disturbances; F17.210 Nicotine dependence, cigarettes, uncomplicated; G47.419 Narcolepsy without cataplexy; R26.81 Unsteadiness on feet; Z87.01 Personal history of pneumonia (recurrent); Z85.3 Personal history of malignant neoplasm of breast; Z92.3 Personal history of irradiation; R63.5 Abnormal weight gain; Z68.26 Body mass index [BMI] 26.0-26.9, adult; Z79.891 Long term (current) use of opiate analgesic; Z79.899 Other long term (current) drug therapy; Z79.890 Hormone replacement therapy; Z88.2 Allergy status to sulfonamides; Z91.030 Bee allergy status
CPT/HCPCS: 97161; 64445; 85025; 82306; 73600; 27814; C1713; J2250; J1100; J2710; J2405; J2001; J1650 ×2; J3010; J2795; J2370; J0330; J2704; J1170 ×3; J0690

== ENCOUNTER → 2023-01-28 | Outpatient (CLI) | payer MEDICARE ==
--- NOTE | 2023-01-28 12:03 | XR ---
EXAMINATION TYPE: XR lumbosacral spine min 4V DATE OF EXAM: 01/28/2023 CLINICAL HISTORY: Low back pain TECHNIQUE: Frontal, lateral, and oblique images of the lumbar spine are obtained. COMPARISON: None FINDINGS: There are 5 lumbar type vertebral bodies identified. The lumbar spine shows dextroconvex scoliotic curvature centered at L3 level without evidence of acute fracture or dislocation. Vertebral body heights are within normal limits. Moderate disc space narrowing at L4-L5 level. Mild disc spac e narrowing at L5-S1 level The oblique images appear within normal limits. Mild to moderate Vascular calcification overlying the abdominal aorta is noted. IMPRESSION: As above.
== END | disposition home or self-care (01) ==
LOC: RADXRYALE 11:42
PROVIDERS: ATTEND Internal Medicine
DX: M51.36 Other intervertebral disc degeneration, lumbar region (principal); M41.86 Other forms of scoliosis, lumbar region
CPT/HCPCS: 72110

== ENCOUNTER → 2023-04-02 | Outpatient (CLI) | payer MEDICARE ==
--- NOTE | 2023-04-02 19:11 | XR ---
EXAMINATION TYPE: XR chest 2V DATE OF EXAM: 04/02/2023 4:57 PM CLINICAL INDICATION:Female, 83 years old with history of R051 ACUTE COUGH; [facility] COMPARISON: 07/27/2018 TECHNIQUE: XR chest 2V. Frontal and lateral views of the chest.. FINDINGS: Lines/Tubes/Devices: No indwelling lines are seen. Heart/mediastinum: Heart size is normal. The aorta appears tortuous, a finding usually associated wi th either atherosclerosis or systemic hypertension. Pulmonary vascularity: Not increased, Lungs/Pleura: Hyperinflation with flattening of the diaphragm and mild interstitial changes. No evide nce of focal consolidation, sizeable pleural effusion, or pneumothorax. Musculoskeletal: Osteopenia and mild degenerative changes of the shoulders and spine. No acute osseou s abnormality seen in the limitations of the exam. Other findings: None. IMPRESSION: 1. No acute cardiopulmonary disease process. 2. COPD changes.
== END | disposition home or self-care (01) ==
LOC: RADXRYALE 16:46
PROVIDERS: ATTEND Internal Medicine
DX: J44.9 Chronic obstructive pulmonary disease, unspecified (principal)
CPT/HCPCS: 71046